=== PATIENT | female | born 1940 | race Caucasian/White ===

== ENCOUNTER 2022-10-03 13:03 | Emergency (ER) | payer MEDICARE ==
[~2022-10-03] VITALS: Ht 175.3 cm; Wt 70.3 kg
[2022-10-03 14:00] VITALS: BP_SYST 155
--- NOTE | 2022-10-03 14:00 | NUR ---
Placed in room H1 . Placed on cardiac cath technician, blood pressure machine and pulse oximeter. To gown for exam. Side rails up.
--- NOTE | 2022-10-03 14:45 | NUR ---
ER DR. TOM EXAMINING PT
[2022-10-03 15:25] VITALS: BP_SYST 131
--- NOTE | 2022-10-03 15:25 | NUR ---
Patient given written and verbal discharge instructions and verbalizes understanding. ER MD discussed with patient the results and treatment provided. Patient in stable condition. ID arm band removed. NO Rx given. Patient educated on pain management and to follow up with PMD. Pain Scale 0/10. Opportunity for questions provided and answered. Medication side effect fact sheet provided.
== END 2022-10-03 15:25 | disposition home or self-care (01) ==
LOC: SED 13:03
DX: I49.9 Cardiac arrhythmia, unspecified (principal); R00.9 Unspecified abnormalities of heart beat; Z79.899 Other long term (current) drug therapy
CPT/HCPCS: 93005; 99283